=== PATIENT | male | born 2005 | race Two or more races ===

== ENCOUNTER 2024-03-03 13:10 | Emergency (ER) | payer OTHER ==
[2024-03-03 13:29] VITALS: BP 123/65; PULSE 67; RESP 18; TEMP 98.6; BMI 26.4
[2024-03-03] MEDS ORDERED: KETOROLAC TROMETHAMINE 15 MG/ML VIAL ONE (14:28)
[2024-03-03] MEDS ORDERED: ONDANSETRON 4 MG/2 ML VIAL ONE (14:28)
[2024-03-03 14:34] LABS: BASO % 0.4 % (0-2.0); EOS % 3.6 % (0-4.5); HEMATOCRIT 44.4 % (35.4-49); HEMOGLOBIN 14.9 GM/dL (11.7-16.9); LYMPH % 18.7 % (8-40); MCH 28.7 pg (25.7-33.7); MCHC 33.7 g/dl (32.0-35.9); MEAN CELL VOLUME 85.3 fl (80-96); MEAN PLT VOLUME 10.4 fl (7.5-11.1); MONO % 5.9 % (3.8-10.2); NEUT % 71.4 % (42.8-82.8); PH,URINE 7.5 (5.0-8.0); PLATELET COUNT 152 10^3/uL (134-434); RDW 13.6 % (11.9-15.9); URINE APPEARANCE CLEAR; URINE BILIRUBIN NEGATIVE (NEGATIVE); URINE COLOR YELLOW; URINE GLUCOSE (UA) NEGATIVE (NEGATIVE); URINE KETONE NEGATIVE (NEGATIVE); URINE LEUK ESTERASE NEGATIVE (NEGATIVE); URINE NITRITE NEGATIVE (NEGATIVE); URINE PROTEIN NEGATIVE (NEGATIVE); URINE UROBILINOGEN 0.2 mg/dL (0.2-1.0); WHITE BLOOD COUNT 10.3 K/mm3 (4.0-10.0)
[2024-03-03] MEDS: KETOROLAC TROMETHAMINE 15 MG/ML VIAL IVPUSH ONE (14:34)
[2024-03-03] MEDS: ONDANSETRON 4 MG/2 ML VIAL IVPUSH ONE (14:34)
[2024-03-03] MEDS: SODIUM CHLORIDE 1,000 ML IV STA (14:34)
[2024-03-03 14:43] LABS: OPIATES, URI NEGATIVE (NEGATIVE)
[2024-03-03 14:44] LABS: COCAINE, UR NEGATIVE (NEGATIVE); METHADONE, UR NEGATIVE (NEGATIVE); PHENCYCLIDINE,URINE NEGATIVE (NEGATIVE); URINE BARBITURATES NEGATIVE (NEGATIVE); URINE BENZODIAZEPINES NEGATIVE (NEGATIVE)
[2024-03-03 14:45] LABS: URINE AMPHETAMINES NEGATIVE (NEGATIVE)
[2024-03-03 15:02] LABS: MAGNESIUM 2.4 mg/dL (1.8-2.4); POTASSIUM 4.3 mmol/L (3.5-5.1)
[2024-03-03 15:04] LABS: CALCIUM 9.1 mg/dL (8.5-10.1)
[2024-03-03 15:05] LABS: ALBUMIN 4.2 g/dl (3.4-5.0); BLOOD UREA NITROGEN 9.8 mg/dL (7-18)
[2024-03-03 15:06] LABS: PHOSPHOROUS 3.5 mg/dL (2.5-4.9)
[2024-03-03 15:08] LABS: CREATININE 1.1 mg/dL (0.55-1.3)
[2024-03-03 15:09] LABS: BILIRUBIN,TOTAL 0.8 mg/dL (0.2-1); TOT PROT 7.8 g/dl (6.4-8.2)
== END 2024-03-03 18:07 | disposition home or self-care (01) ==
LOC: JER 13:10
PROC: 3E0303Z Introduction of Anti-inflammatory into Peripheral Vein, Open Approach (ICD-10-PCS; principal; 2024-03-03)
PROC: 3E030GC Introduction of Other Therapeutic Substance into Peripheral Vein, Open Approach (ICD-10-PCS; 2024-03-03)
PROC: 3E0337Z Introduction of Electrolytic and Water Balance Substance into Peripheral Vein, Percutaneous Approach (ICD-10-PCS; 2024-03-03)
DX: G43.909 Migraine, unspecified, not intractable, without status migrainosus (principal); J32.9 Chronic sinusitis, unspecified; R11.0 Nausea; R42 Dizziness and giddiness
CPT/HCPCS: 36415; 70450-TC; 80053; 80307; 81003; 83735; 84100; 85025; 93005; 93010; 99285-25